=== PATIENT | female | born 1945 | race Asian ===

== ENCOUNTER 2017-05-03 15:14 | Emergency (ER) | payer BC, MEDICARE ==
[~2017-05-03] VITALS: Ht 149.9 cm; Wt 54.5 kg
[~2017-05-03 15:14] MED LIST: ASPIRIN E.C. 8181 MG PO; CRESTOR40 MG PO; GLUCOPHAGE1000 MG PO; LOPRESSOR 225 MG/TAB PO; MULTI VITAMINS1 TAB PO; NITROSTAT0.4 MG/TAB SL; OS-CAL 500 + D1 TAB PO; PLAVIX 75MG TAB75 MG PO; PRINZIDE 25 MG-1 TAB PO; ZANTAC 150MG T150 MG PO; ZOFRAN ODT4 MG PO
[2017-05-03] MEDS ORDERED: COLACE 100100 MG/CAP PO (15:25)
[2017-05-03] MEDS ORDERED: PROTONIX 40MG T40 MG PO (15:29)
[2017-05-03] MEDS ORDERED: CRESTOR40 MG PO (15:29)
[2017-05-03 16:11] LABS: ALANINE AMINOTRANSFERASE 44 U/L (9-52); ALBUMIN 4.6 gm/dL (3.5-5.0); ALKALINE PHOSPHATASE 54 U/L (50-136); ANION GAP 9 mmol/L (7-16); AST,SGOT 43 U/L (15-37); BILIRUBIN,TOTAL 0.6 mg/dL (0.0-1.0); BLOOD UREA NITROGEN 16 mg/dL (7-17); CALCIUM 9.3 mg/dL (8.4-10.2); CARBON DIOXIDE 27 mmol/L (22-30); CHLORIDE 95 mmol/L (98-107); CREATININE, serum 0.68 mg/dL (0.52-1.25); GLUCOSE 119 mg/dL (74-106); POTASSIUM 3.4 mmol/L (3.4-5.0); SODIUM 131 mmol/L (137-145); TOTAL PROTEIN 7.5 gm/dL (6.4-8.2)
[2017-05-03 16:19] LABS: BASO % 0.4 % (0.0-2.0); EOS % 0.6 % (0-4.0); GRAN # 3.7 (1.4-6.5); GRAN % 73.2 % (42.2-75.2); HEMOGLOBIN 12.3 g/dl (12.5-16.0); LYMPH # 0.6 (1.2-3.4); LYMPH % 12.8 % (20.0-51.0); MEAN CELL VOLUME 81 fl (80.0-100.0); MEAN CORPUSCULAR HEMOGLOBIN 28 pg (27.0-31.0); MEAN CORPUSCULAR HGB CONC 34 g/dl (33.0-37.0); MEAN PLATELET VOLUME 10.3 fl (7.4-10.4); MONO # 0.6 (0.1-0.6); MONO % 12.8 % (1.7-9.3); PLATELET COUNT 195 K/mm3 (130-400); RED BLOOD COUNT 4.48 M/mm3 (4.10-5.30); REDCELL DISTRIBUTION WIDTH-CV 13.8 % (11.5-14.5)
[2017-05-03 16:23] LABS: HEMATOCRIT 36.4 % (37.0-47.0)
[2017-05-03 16:30] LABS: TROPONIN-I < 0.012 ng/mL (0.000-0.034)
[2017-05-03] MEDS ORDERED: TAMIFLU 75MG75 MG PO (16:57)
[2017-05-03 17:40] VITALS: BP 134/76; PULSE 90; TEMP 100.4
== END 2017-05-03 17:42 | disposition home or self-care (01) ==
LOC: COL.ER 15:14
PROVIDERS: Family Medicine
DX: J10.1 Influenza due to other identified influenza virus with other respiratory manifestations (principal); I10 Essential (primary) hypertension; I25.10 Atherosclerotic heart disease of native coronary artery without angina pectoris; E11.9 Type 2 diabetes mellitus without complications; Z95.5 Presence of coronary angioplasty implant and graft; Z79.82 Long term (current) use of aspirin; Z79.02 Long term (current) use of antithrombotics/antiplatelets; Z79.84 Long term (current) use of oral hypoglycemic drugs
CPT/HCPCS: J7030